=== PATIENT | female | born 1975 | race Caucasian/White ===

== ENCOUNTER → 2021-02-28 | Emergency (ER) | payer OTHER, SELFPAY ==
[~2021-02-28] VITALS: Ht 165.1 cm; Wt 62.1 kg
[~2021-02-28] MED LIST: OXYCODONE/ACETAMINOPHEN 5-325 TABLET PO ONE
[2021-02-28 15:53] VITALS: BP_SYST 109
--- NOTE | 2021-02-28 15:57 | NUR ---
sent to [email or web address]
== END | disposition home or self-care (01) ==
LOC: SED 14:35
DX: N93.9 Abnormal uterine and vaginal bleeding, unspecified (principal); J45.909 Unspecified asthma, uncomplicated; K21.9 Gastro-esophageal reflux disease without esophagitis; Z88.0 Allergy status to penicillin
CPT/HCPCS: 99282; 99284

== ENCOUNTER 2023-07-11 20:37 | Emergency (ER) | payer OTHER ==
[~2023-07-11] VITALS: Ht 165.1 cm; Wt 63.5 kg
[2023-07-11 21:17] VITALS: BP_SYST 107; PULSE 96; RESP 20; TEMP 98.1; O2SAT 99
[2023-07-11 21:43] LABS: BASOPHILS # (AUTO) 0.1 K/uL (0.0-0.2); EOSINOPHILS # (AUTO) 0.3 K/uL (0.0-0.4); EOSINOPHILS % (AUTO) 2.7 % (0.0-4.0); HEMATOCRIT 39.5 % (36-48); HEMOGLOBIN 13.5 g/dL (12.0-16.0); LYMPHOCYTES # (AUTO) 2.6 K/uL (1.0-5.5); LYMPHOCYTES % (AUTO) 25.7 % (20.5-51.5); MEAN CORPUSCULAR HEMOGLOBIN 30 pg (27-31); MEAN CORPUSCULAR HGB CONC 34 % (32-36); MEAN CORPUSCULAR VOLUME 86 fL (79.0-98.0); MONOCYTES # (AUTO) 0.7 K/uL (0.0-1.0); NEUTROPHILS # (AUTO) 6.3 K/uL (1.8-7.7); NEUTROPHILS % (AUTO) 63.6 % (40.0-70.0); PLATELET COUNT (AUTO) 351 K/uL (130-430); RED BLOOD CELL COUNT(AUTO) 4.59 MIL/uL (4.2-6.2); RED CELL DISTRIBUTION WIDTH 13.6 % (9.0-15.0); WHITE BLOOD COUNT (AUTO) 9.9 K/uL (4.8-10.8)
[2023-07-11 22:02] LABS: ALBUMIN 3.4 g/dL (3.4-4.8); BILIRUBIN,DIRECT 0.1 mg/dL (0.0-0.3); CALCIUM 8.5 mg/dL (8.4-11.0); CREATININE 0.91 mg/dL (0.55-1.30); POTASSIUM 4.2 mmol/L (3.5-5.1); TOTAL BILIRUBIN 0.2 mg/dL (0.0-1.0); TOTAL PROTEIN, SERUM 7.2 g/dL (6.4-8.3)
[2023-07-11 22:09] LABS: BILIRUBIN,URINE NEGATIVE (NEGATIVE); BLOOD, URINE NEGATIVE (NEGATIVE); COLOR,URINE YELLOW (YELLOW); GLUCOSE,URINE NEGATIVE (NEGATIVE); KETONES,URINE TRACE (NEGATIVE); LEUKOCYTE ESTERASE ,URINE NEGATIVE (NEGATIVE); NITRITE, URINE NEGATIVE (NEGATIVE); PROTEIN URINE NEGATIVE (NEGATIVE); UROBILINOGEN,URINE 0.2 (0.2-1.0)
[2023-07-11 22:21] LABS: CLARITY/URINE SLIGHTLY HAZY (CLEAR)
[2023-07-11] MEDS: NACL 0.9% 1,000 ML IV ONE (22:39)
[2023-07-11] MEDS: KETOROLAC TROMETHAMINE 30 MG VIAL IVP ONE (22:40)
[2023-07-12] MEDS ORDERED: TRAM50TA2 PO (00:34)
[2023-07-12 00:50] VITALS: BP_SYST 129; PULSE 80; RESP 20; TEMP 97.5; O2SAT 98
== END 2023-07-12 00:50 | disposition home or self-care (01) ==
LOC: SED 20:37
DX: R10.32 Left lower quadrant pain (principal); N83.202 Unspecified ovarian cyst, left side; J45.909 Unspecified asthma, uncomplicated; K21.9 Gastro-esophageal reflux disease without esophagitis; Z88.0 Allergy status to penicillin
CPT/HCPCS: 99285; 74176; 96374; 96361; 80076; 80048; 81001; 83690; 85025; 36415; J1885; J7030; 81003